=== PATIENT | male | born 1955 | race Caucasian/White ===

== ENCOUNTER 2022-02-04 11:58 | Emergency (ER) | payer OTHER, MEDICAID ==
[~2022-02-04] VITALS: Ht 170.2 cm; Wt 103.9 kg
[2022-02-04 12:10] VITALS: BP 154/96
--- NOTE | 2022-02-04 12:45 | NUR ---
PT AMBULATED TO BED 05.
--- NOTE | 2022-02-04 13:49 | NUR ---
LAB AT BEDSIDE.
--- NOTE | 2022-02-04 13:53 | NUR ---
PATIENT TAKEN TO CT VIA [facility]
--- NOTE | 2022-02-04 13:56 | NUR ---
66 Y/O MALE WITH C/O BLOOD AND BLOOD CLOTS IN URINE X 2.5 MONTHS. PER PATIENT HE HAS BLOOD IN URINE INTERMITTENTLY. PATIENT WAS REFERED HERE FROM HIS CLINIC. PATIENT DENIES ANY PAIN OR DISCOMFORT. DENIES ANY SOB, FEVER OR CHILLS. MEDICAL HISTORY: HTN, PREDIABETIC NKDA
--- NOTE | 2022-02-04 14:15 | NUR ---
POC: DAUGHTER: SHUN COLÓN [phone]
[2022-02-04 14:23] LABS: APPEARANCE,URINE CLEAR (CLEAR); BILIRUBIN,URINE NEGATIVE (NEGATIVE); BLOOD, URINE 1+ (NEGATIVE); COLOR,URINE YELLOW (YELLOW); LEUKOCYTE ESTERASE ,URINE NEGATIVE (NEGATIVE); NITRITE, URINE POSITIVE (NEGATIVE); UGLUCOSE NEGATIVE (NEGATIVE)
[2022-02-04 14:27] LABS: BASOPHILS % (AUTO) 0.3 % (0.0-2.0); EOSINOPHILS # (AUTO) 0.3 K/uL (0-0.4); EOSINOPHILS % (AUTO) 4.3 % (0.0-4.0); HEMATOCRIT 40.7 % (36-52); HEMOGLOBIN 14.1 g/dL (12.0-18.0); LYMPHOCYTES # (AUTO) 2.6 K/uL (2.0-11.5); LYMPHOCYTES % (AUTO) 35.1 % (20.5-51.1); MEAN CORPUSCULAR HEMOGLOBIN 32 pg (27-31); MEAN CORPUSCULAR HGB CONC 35 g/dL (33-37); MEAN CORPUSCULAR VOLUME 91.5 fL (80-94); MONOCYTES # (AUTO) 0.6 K/uL (0.8-1.0); MONOCYTES % (AUTO) 8.5 % (1.7-9.3); NEUTROPHILS # (AUTO) 3.9 K/uL (1.8-7.7); NEUTROPHILS % (AUTO) 51.8 % (42.2-75.2); PLATELET COUNT (AUTO) 201 K/uL (140-450); RED BLOOD CELL COUNT(AUTO) 4.45 MIL/uL (4.20-6.10); RED CELL DISTRIBUTION WIDTH 13.4 % (11.6-13.7); WHITE BLOOD COUNT (AUTO) 7.5 K/uL (4.8-10.8)
[2022-02-04 14:38] LABS: ALBUMIN 3.7 g/dL (3.4-5.0); ANION GAP 10.9 (8-16); CARBON DIOXIDE 28.4 mmol/L (21-32); CREATININE 0.9 mg/dL (0.6-1.3); POTASSIUM 4.3 mmol/L (3.5-5.1); TOTAL BILIRUBIN 0.5 mg/dL (0.0-1.0)
[2022-02-04 14:41] LABS: OTHER CASTS, URINE None Seen /LPF (None Seen); WBC,URINE 0-5 /HPF (0-5)
[2022-02-04] MEDS ORDERED: SULF-59 PO (16:05)
--- NOTE | 2022-02-04 16:13 | NUR ---
Dr. Castellano re-evaluating patient.
[2022-02-04] MEDS ORDERED: TAMS0.4C96 PO (16:36)
[2022-02-04 16:53] VITALS: BP 148/93
--- NOTE | 2022-02-04 16:53 | NUR ---
Patient discharged with v/s stable. Written and verbal after care instructions given. Patient alert, oriented and verbalized understanding of instructions. Ambulatory with steady gait. All questions addressed prior to discharge. ID band removed. Patient advised to follow up with PMD. Rx of BACTRIM AND FLOMAX given. Opportunity to ask questions provided and answered.
--- NOTE | 2022-02-04 16:54 | NUR ---
The patient's care was reviewed and supervised by Lay Martinez RN.
== END 2022-02-04 16:53 | disposition home or self-care (01) ==
LOC: MED 11:58
DX: R31.9 Hematuria, unspecified (principal); I10 Essential (primary) hypertension; E11.9 Type 2 diabetes mellitus without complications; Z79.4 Long term (current) use of insulin; Z79.899 Other long term (current) drug therapy
CPT/HCPCS: 36415; 80053; 81001; 85025; 99284